=== PATIENT | female | born 1995 | race Caucasian/White ===

== ENCOUNTER 2018-04-03 04:16 | Inpatient (IN) | payer OTHER ==
[2018-04-03] MEDS ORDERED: Ampicillin 2 GM in Sodium Chloride 0.9% 100 ML IV ONE (05:00)
[2018-04-03] MEDS ORDERED: Sodium Chloride 0.9% 10 ML Syringe FLUSH PRN (05:25)
[2018-04-03] MEDS ORDERED: Nalbuphine 20 MG/ML 1 ML Syringe IVPUSH PRN (05:25)
[2018-04-03] MEDS ORDERED: Oxytocin/Lactated Ringers 10 UNIT/1,000 ML BAG IV SCH (05:30)
[2018-04-03] MEDS ORDERED: Lactated Ringers 1,000 ML IV SCH (05:30)
[2018-04-03] MEDS ORDERED: Ampicillin 1 GM in Sodium Chloride 0.9% 100 ML IV SCH (09:00)
--- NOTE | 2018-04-03 09:40 | PCM.LDHP ---
L&D History of Present Illness - General Date of Service: 04/03/18 Admit Problem/Dx: Patient Status Order with Admit Dx/Problem 04/03/18 05:25 Patient Status [ADT] Routine Admission Diagnosis/Problem Admission Diagnosis/Problem Source of Information: Patient, RN Notes Reviewed - History of Present Illness Introduction:: 22 year old at 38w3d here with painful contractions. PNC with Dr Orantes without complications. Labs reviewed - Related Data Allergies/Adverse Reactions: Allergies Allergy/AdvReac Type Severity Reaction Status Date / Time No Known Allergies Allergy Verified 04/03/18 05:24 Past Medical History Other Gastrointestinal History: Hx of frequent diarrhea and constipation both during and prior to . Denies IBS or other known cause for these persistant bowel issues [employer] History: Reports: , Spontaneous Psychiatric History: Reports: None Hematologic History: Reports: Anemia Other Hematologic History: With - Past Surgical History HEENT Surgical History: Reports: Oral Surgery Other HEENT Surgeries/Procedures: Rowdy teeth pulled 2013 GI Surgical History: Reports: Appendectomy Other GI Surgeries/Procedures: 2013 Dermatological Surgical History: Reports: None Social & Family History - Family History Family Medical History: Noncontributory - Tobacco Use Smoking Status *Q: Never Smoker Second Hand Smoke Exposure: No - Caffeine Use Caffeine Use: Reports: None - Recreational Drug Use Recreational Drug Use: No H&P Review of Systems - Review of Systems: Review Of Systems: See Below General: Reports: No Symptoms HEENT: Reports: No Symptoms Pulmonary: Reports: No Symptoms Cardiovascular: Reports: No Symptoms Gastrointestinal: Reports: No Symptoms Genitourinary: Reports: No Symptoms Musculoskeletal: Reports: No Symptoms Skin: Reports: No Symptoms Psychiatric: Reports: No Symptoms Neurological: Reports: No Symptoms Hematologic/Lymphatic: Reports: No Symptoms Immunologic: Reports: No Symptoms L&D Exam - Exam Exam: See Below - Vital Signs Vital Signs: Last Vital Signs Temp 37.4 C 04/03/18 05:25 Pulse 87 04/03/18 05:25 Resp 15 04/03/18 05:25 BP 122/80 04/03/18 05:25 Pulse Ox Weight: 63.957 kg - OB Specific Contraction Intensity: Moderate Movement: Active Heart Tones: Present Heart Rate (FHR) Variability: Moderate (6-25 bmp) Presentation: Vertex - Patterson Score Patterson Score Cervix Position: Anterior Patterson Score Consistency: Soft Patterson Score Dilation: > 5 cm Patterson Score 's Station: -2 - Exam General: Alert, Oriented HEENT: PERRLA, Conjunctiva Clear, EACs Clear, EOMI, Hearing Intact, Mucosa Moist & [place], Nares Patent, Normal Nasal Septum, Posterior Pharynx Clear, TMs Clear Neck: Supple, Trachea Midline Lungs: Clear to Auscultation, Normal Respiratory Effort Cardiovascular: Regular Rate, Regular Rhythm GI/Abdominal Exam: Normal Bowel Sounds, Soft, Non-Tender, No Organomegaly, No Distention, No Abnormal Bruit, No Mass, Pelvis Stable Genitourinary: Normal external exam Back Exam: Normal Inspection, Full Range of Motion Extremities: Normal Inspection, Normal Range of Motion, Non-Tender, No Pedal Edema, Normal Capillary Refill Skin: Warm, Dry, Intact Neurological: Cranial Nerves Intact, Reflexes Equal Bilateral Psychiatric: Alert, Normal Affect, Normal Mood - Patient Data Lab Results Last 24 hrs: Laboratory Results - last 24 hr 04/03/18 Range/Units 06:20 WBC 14.56 H (3.98-10.04) K/mm3 RBC 4.48 (3.98-5.22) M/mm3 Hgb 13.4 (11.2-15.7) gm/L Hct 39.4 (34.1-44.9) % MCV 87.9 (79.4-94.8) fl MCH 29.9 (25.6-32.2) pg MCHC 34.0 (32.2-35.5) g/dl RDW Std Deviation 41.4 (36.4-46.3) fL Plt Count 171 L (182-369) K/mm3 MPV 10.3 (9.4-12.3) fl Neut % (Auto) 79.7 H (34.0-71.1) % Lymph % (Auto) 12.3 L (19.3-51.7) % [place] % (Auto) 7.3 (4.7-12.5) % Eos % (Auto) 0.2 L (0.7-5.8) Baso % (Auto) 0.1 (0.1-1.2) % Neut # (Auto) 11.60 H (1.56-6.13) K/mm3 Lymph # (Auto) 1.79 (1.18-3.74) K/mm3 [place] # (Auto) 1.06 H (0.24-0.36) K/mm3 Eos # (Auto) 0.03 L (0.04-0.36) K/mm3 Baso # (Auto) 0.02 (0.01-0.08) K/mm3 Result Diagrams: 04/03/18 06:20 Problem List Initiated/Reviewed/Updated: Yes Orders Last 24hrs: Active Orders 24 hr Category Date Time Status Patient Status [ADT] Routine ADT 04/03/18 05:25 Active Activity as Tolerated [RC] PFP Care 04/03/18 05:25 Active Communication Order [RC] ASDIRECTED Care 04/03/18 05:25 Active Heart Tones [RC] ASDIRECTED Care 04/03/18 05:28 Active Non Stress Test [RC] PER UNIT ROUTINE Care 04/03/18 05:25 Active Notify Provider [RC] PFP Care 04/03/18 05:25 Active Notify Provider [RC] PRN Care 04/03/18 05:25 Active Peripheral IV Care [RC] . DIRECTED Care 04/03/18 05:28 Active Vital Signs [RC] PER UNIT ROUTINE Care 04/03/18 05:25 Active Regular Diet [DIET] Diet 04/03/18 Breakfast Active RAPID PLASMA REAGIN,RPR [CHEM] Routine Lab 04/03/18 06:20 Received Ampicillin 1 gm Med 04/03/18 09:00 Active Sodium Chloride 0.9% [Normal Saline] 100 ml IV Q4H Lactated Ringers [Ringers, Lactated] 1,000 ml Med 04/03/18 05:30 Active IV ASDIRECTED Nalbuphine [Nubain] Med 04/03/18 05:25 Active 10 mg IVPUSH Q2H PRN Oxytocin/Lactated Ringers [Pitocin in LR 10 Units/1,000 Med 04/03/18 05:30 Active ML] 10 unit in 1,000 ml IV .CONTINUOUS Sodium Chloride 0.9% [Saline Flush] Med 04/03/18 05:25 Active 10 ml FLUSH ASDIRECTED PRN Electronic Heart Tones Ext w TOCO [WOMSER] Oth 04/03/18 05:25 Ordered Routine Electronic Heart Tones Internal [WOMSER] Per Unit Oth 04/03/18 05:25 Ordered Routine Peripheral IV Insertion Adult [OM.PC] Routine Oth 04/03/18 05:25 Ordered Resuscitation Status Routine Resus Stat 04/03/18 05:25 Ordered Medication Orders Ampicillin Sodium 1 gm/ Sodium (Chloride) 100 mls @ 200 mls/hr IV Q4H DIONICIO Lactated Ringer's (Ringers, Lactated) 1,000 mls @ 100 mls/hr IV ASDIRECTED DIONICIO Last Admin: 04/03/18 06:20 Dose: 100 mls/hr Oxytocin/Lactated Ringer's (Pitocin In Lr 10 Units/1,000 Ml) 10 unit in 1,000 mls @ 500 mls/hr IV .CONTINUOUS DIONICIO Nalbuphine HCl (Nubain) 10 mg IVPUSH Q2H PRN PRN Reason: pain Last Admin: 04/03/18 06:35 Dose: 10 mg Sodium Chloride (Saline Flush) 10 ml FLUSH ASDIRECTED PRN PRN Reason: Keep Vein Open Assessment/Plan Comment:: Term labor. Received 1 dose of antibiotics after admission. Now SROM and 9 cm Doing well. Desires nubain for pain management
[2018-04-03] MEDS ORDERED: Lidocaine 1% 50 ML MDV ONE (11:13)
--- NOTE | 2018-04-03 11:30 | PCM.SN ---
- Free Text/Narrative Note: STage I - Patient presented in active labor. SROM clear fluid. Progressed to complete with overall reassuring heart tones. Stage II - of viable male, weight 6#12oz, APGARS 8/9 at 1107. Head delivered in controlled manner over intact perineum. Body and shoulders followed atraumatically. Positive cry. Cord clamped and cut Stage III - of intact placenta. 3vc. Small 1st degree midline laceration repaired with 3-0 vicryl. EBL 250.
[2018-04-03] MEDS ORDERED: Benzocaine/Menthol 20%-0.5% Spray 56 GM Canister TOP PRN (12:12)
[2018-04-03] MEDS ORDERED: Witch Hazel Medicated Pads 100/Jar TOP PRN (12:12)
[2018-04-03] MEDS ORDERED: Lanolin 100% Cream 7 GM Tube TOP PRN (12:12)
[2018-04-03] MEDS ORDERED: Acetaminophen 325 MG Tab PO PRN (14:25)
[2018-04-03] MEDS ORDERED: Lidocaine 1% 50 ML MDV INJECT ONE (19:45)
[2018-04-03] MEDS: Ibuprofen 600 MG Tab PO PRN (20:15)
--- NOTE | 2018-04-04 06:56 | PCM.PNPP ---
- General Info Date of Service: 04/04/18 Functional Status: Reports: Pain Controlled, Tolerating Diet, Ambulating, Urinating - Review of Systems General: Reports: No Symptoms Pulmonary: Reports: No Symptoms Cardiovascular: Reports: No Symptoms Gastrointestinal: Reports: No Symptoms Genitourinary: Reports: No Symptoms Musculoskeletal: Reports: No Symptoms - Patient Data Vital Signs - Most Recent: Last Vital Signs Temp 36.6 C 04/04/18 02:13 Pulse 74 04/04/18 02:13 Resp 16 04/04/18 02:13 BP 104/69 04/04/18 02:13 Pulse Ox 99 04/04/18 02:13 Weight - Most Recent: 63.957 kg I&O - Last 24 Hours: Intake & Output 04/03/18 04/03/18 04/04/18 14:59 22:59 06:59 Intake Total 180 Balance 180 Lab Results - Last 24 Hours: Laboratory Results - last 24 hr 04/03/18 Range/Units 06:20 RPR Non-reactive (NONREACTIVE) Med Orders - Current: Current Medications Acetaminophen (Tylenol) 650 mg PO Q6H PRN PRN Reason: Cramping Benzocaine/Menthol (Dermoplast Pain Relief [place]) 0 gm TOP ASDIRECTED PRN PRN Reason: Perineal Comfort Measure Last Admin: 04/03/18 15:12 Dose: 1 canister Emollient Ointment (Lansinoh Hpa) 0 gm TOP ASDIRECTED PRN PRN Reason: Sore Nipples Ibuprofen (Motrin) 600 mg PO Q6H PRN PRN Reason: Cramping Last Admin: 04/03/18 20:15 Dose: 600 mg Witch Ragini (Tucks) 1 pad TOP ASDIRECTED PRN PRN Reason: Hemorrhoid pain Last Admin: 04/03/18 15:13 Dose: 1 tub Discontinued Medications Ampicillin Sodium 2 gm/ Sodium (Chloride) 100 mls @ 200 mls/hr IV ONETIME ONE Stop: 04/03/18 05:29 Last Admin: 04/03/18 06:20 Dose: 200 mls/hr Ampicillin Sodium 1 gm/ Sodium (Chloride) 100 mls @ 200 mls/hr IV Q4H DIONICIO Last Admin: 04/03/18 10:20 Dose: 200 mls/hr Lactated Ringer's (Ringers, Lactated) 1,000 mls @ 100 mls/hr IV ASDIRECTED DIONICIO Last Admin: 04/03/18 06:20 Dose: 100 mls/hr Oxytocin/Lactated Ringer's (Pitocin In Lr 10 Units/1,000 Ml) 10 unit in 1,000 mls @ 500 mls/hr IV .CONTINUOUS DIONICIO Last Admin: 04/03/18 11:09 Dose: 500 mls/hr Lidocaine HCl (Xylocaine 1%) Confirm Administered Dose 50 ml .ROUTE .STK-MED ONE Stop: 04/03/18 11:14 Last Admin: 04/03/18 11:31 Dose: 50 ml Lidocaine HCl (Xylocaine 1%) 50 ml INJECT ONETIME ONE Stop: 04/03/18 19:46 Nalbuphine HCl (Nubain) 10 mg IVPUSH Q2H PRN PRN Reason: pain Last Admin: 04/03/18 06:35 Dose: 10 mg Sodium Chloride (Saline Flush) 10 ml FLUSH ASDIRECTED PRN PRN Reason: Keep Vein Open - Interaction Disposition, : [place] in Room with Family Infant Interaction: Holding Feeding: Attempted ; Nursed Fair/Poor Support Person: - Recovery Exam Fundal Tone: Firm Fundal Level: At Umbilicus Fundal Placement: Midline Lochia Amount: Scant, Small Lochia Color: Rubra/Red Bladder Status: Voiding Urinary Elimination: Voided - Exam General: Alert, Oriented, Cooperative GI/Abdominal Exam: Soft, Non-Tender Extremities: Normal Inspection Skin: Warm, Dry, Intact - Problem List & Annotations (1) 38 weeks gestation of SNOMED Code(s): 01799095 Code(s): Z3A.38 - 38 WEEKS GESTATION OF Status: Acute Current Visit: Yes (2) Normal labor SNOMED Code(s): 23098907 Code(s): O80 - ENCOUNTER FOR FULL-TERM UNCOMPLICATED DELIVERY; Z37.9 - OUTCOME OF DELIVERY, UNSPECIFIED Status: Acute Current Visit: Yes (3) Vaginal delivery SNOMED Code(s): 807539835 Code(s): O80 - ENCOUNTER FOR FULL-TERM UNCOMPLICATED DELIVERY Status: Acute Current Visit: Yes - Problem List Review Problem List Initiated/Reviewed/Updated: Yes - Assessment Assessment:: PPD#1 from - Plan Plan:: Routine cares Encourage breast feeding Discharge home tomorrow
[2018-04-04] MEDS: Ibuprofen 600 MG Tab PO PRN ×2 (07:59→18:46)
[2018-04-05] MEDS: Ibuprofen 600 MG Tab PO PRN ×2 (01:20→06:59)
--- NOTE | 2018-04-05 08:34 | PCM.DCSUM1 ---
Discharge Summary - Discharge Data Discharge Date: 04/05/18 Discharge Disposition: Home, Self-Care 01 Condition: Good - Discharge Diagnosis/Problem(s) (1) 38 weeks gestation of SNOMED Code(s): 11451607 ICD Code: Z3A.38 - 38 WEEKS GESTATION OF Status: Acute (2) Normal labor SNOMED Code(s): 68358331 ICD Code: O80 - ENCOUNTER FOR FULL-TERM UNCOMPLICATED DELIVERY; Z37.9 - OUTCOME OF DELIVERY, UNSPECIFIED Status: Acute (3) Vaginal delivery SNOMED Code(s): 079711522 ICD Code: O80 - ENCOUNTER FOR FULL-TERM UNCOMPLICATED DELIVERY Status: Acute - Patient Summary/Data Complications: None Consults: None Recommended Follow-up Testing/Procedures: Follow up in 3-6 weeks for check Hospital Course: 22 y/o at 38 5/7 wks presented in labor. Progressed well and underwent an uncomplicated . See delivery note. she did well and was discharged home on PPD#2 - Patient Instructions Diet: Regular Diet as Tolerated Activity: As Tolerated Activity, Other: Pelvic Rest for 6 weeks Driving: May Drive Today Showering/Bathing: May Shower Showering/Bathing, Other: May Bathe Notify Provider of: Fever, Increased Pain, Swelling and Redness, Drainage, Nausea and/or Vomiting - Discharge Plan *PRESCRIPTION DRUG MONITORING PROGRAM REVIEWED*: Not Applicable *COPY OF PRESCRIPTION DRUG MONITORING REPORT IN PATIENT BENEDICTO: Not Applicable Home Medications: Home Meds Ibuprofen [Motrin] 600 mg PO Q6H PRN tablet 04/05/18 [Rx] Patient Handouts: Home Care Instructions for Mom, Tips for a Good Latch Referrals: Sherly Orantes MD [Primary Care Provider] - (3-6 weeks for check) - Discharge Summary/Plan Comment DC Time >30 min.: No - Patient Data Vitals - Most Recent: Last Vital Signs Temp 36.6 C 04/05/18 07:49 Pulse 61 04/05/18 07:49 Resp 15 04/05/18 07:49 BP 118/65 04/05/18 07:49 Pulse Ox 100 04/05/18 07:49 Weight - Most Recent: 63.957 kg I&O - Last 24 hours: Intake & Output 04/04/18 04/05/18 04/05/18 22:59 06:59 14:59 Intake Total 120 Balance 120 Med Orders - Current: Current Medications Acetaminophen (Tylenol) 650 mg PO Q6H PRN PRN Reason: Cramping Benzocaine/Menthol (Dermoplast Pain Relief [place]) 0 gm TOP ASDIRECTED PRN PRN Reason: Perineal Comfort Measure Last Admin: 04/03/18 15:12 Dose: 1 canister Emollient Ointment (Lansinoh Hpa) 0 gm TOP ASDIRECTED PRN PRN Reason: Sore Nipples Ibuprofen (Motrin) 600 mg PO Q6H PRN PRN Reason: Cramping Last Admin: 04/05/18 06:59 Dose: 600 mg Witch Ragini (Tucks) 1 pad TOP ASDIRECTED PRN PRN Reason: Hemorrhoid pain Last Admin: 04/03/18 15:13 Dose: 1 tub Discontinued Medications Ampicillin Sodium 2 gm/ Sodium (Chloride) 100 mls @ 200 mls/hr IV ONETIME ONE Stop: 04/03/18 05:29 Last Admin: 04/03/18 06:20 Dose: 200 mls/hr Ampicillin Sodium 1 gm/ Sodium (Chloride) 100 mls @ 200 mls/hr IV Q4H DIONICIO Last Admin: 04/03/18 10:20 Dose: 200 mls/hr Lactated Ringer's (Ringers, Lactated) 1,000 mls @ 100 mls/hr IV ASDIRECTED DIONICIO Last Admin: 04/03/18 06:20 Dose: 100 mls/hr Oxytocin/Lactated Ringer's (Pitocin In Lr 10 Units/1,000 Ml) 10 unit in 1,000 mls @ 500 mls/hr IV .CONTINUOUS DIONICIO Last Admin: 04/03/18 11:09 Dose: 500 mls/hr Lidocaine HCl (Xylocaine 1%) Confirm Administered Dose 50 ml .ROUTE .STK-MED ONE Stop: 04/03/18 11:14 Last Admin: 04/03/18 11:31 Dose: 50 ml Lidocaine HCl (Xylocaine 1%) 50 ml INJECT ONETIME ONE Stop: 04/03/18 19:46 Last Admin: 04/04/18 11:36 Dose: Not Given Nalbuphine HCl (Nubain) 10 mg IVPUSH Q2H PRN PRN Reason: pain Last Admin: 04/03/18 06:35 Dose: 10 mg Sodium Chloride (Saline Flush) 10 ml FLUSH ASDIRECTED PRN PRN Reason: Keep Vein Open
--- NOTE | 2018-04-05 08:34 | PCM.PNPP ---
- General Info Date of Service: 04/05/18 Functional Status: Reports: Pain Controlled, Tolerating Diet, Ambulating, Urinating - Review of Systems General: Reports: No Symptoms Pulmonary: Reports: No Symptoms Cardiovascular: Reports: No Symptoms Gastrointestinal: Reports: No Symptoms Genitourinary: Reports: No Symptoms Musculoskeletal: Reports: No Symptoms Skin: Reports: No Symptoms - Patient Data Vital Signs - Most Recent: Last Vital Signs Temp 36.6 C 04/05/18 07:49 Pulse 61 04/05/18 07:49 Resp 15 04/05/18 07:49 BP 118/65 04/05/18 07:49 Pulse Ox 100 04/05/18 07:49 Weight - Most Recent: 63.957 kg I&O - Last 24 Hours: Intake & Output 04/04/18 04/05/18 04/05/18 22:59 06:59 14:59 Intake Total 120 Balance 120 Med Orders - Current: Current Medications Acetaminophen (Tylenol) 650 mg PO Q6H PRN PRN Reason: Cramping Benzocaine/Menthol (Dermoplast Pain Relief [place]) 0 gm TOP ASDIRECTED PRN PRN Reason: Perineal Comfort Measure Last Admin: 04/03/18 15:12 Dose: 1 canister Emollient Ointment (Lansinoh Hpa) 0 gm TOP ASDIRECTED PRN PRN Reason: Sore Nipples Ibuprofen (Motrin) 600 mg PO Q6H PRN PRN Reason: Cramping Last Admin: 04/05/18 06:59 Dose: 600 mg Witch Ragini (Tucks) 1 pad TOP ASDIRECTED PRN PRN Reason: Hemorrhoid pain Last Admin: 04/03/18 15:13 Dose: 1 tub Discontinued Medications Ampicillin Sodium 2 gm/ Sodium (Chloride) 100 mls @ 200 mls/hr IV ONETIME ONE Stop: 04/03/18 05:29 Last Admin: 04/03/18 06:20 Dose: 200 mls/hr Ampicillin Sodium 1 gm/ Sodium (Chloride) 100 mls @ 200 mls/hr IV Q4H [facility] Last Admin: 04/03/18 10:20 Dose: 200 mls/hr Lactated Ringer's (Ringers, Lactated) 1,000 mls @ 100 mls/hr IV ASDIRECTED [facility] Last Admin: 04/03/18 06:20 Dose: 100 mls/hr Oxytocin/Lactated Ringer's (Pitocin In Lr 10 Units/1,000 Ml) 10 unit in 1,000 mls @ 500 mls/hr IV .CONTINUOUS DIONICIO Last Admin: 04/03/18 11:09 Dose: 500 mls/hr Lidocaine HCl (Xylocaine 1%) Confirm Administered Dose 50 ml .ROUTE .STK-MED ONE Stop: 04/03/18 11:14 Last Admin: 04/03/18 11:31 Dose: 50 ml Lidocaine HCl (Xylocaine 1%) 50 ml INJECT ONETIME ONE Stop: 04/03/18 19:46 Last Admin: 04/04/18 11:36 Dose: Not Given Nalbuphine HCl (Nubain) 10 mg IVPUSH Q2H PRN PRN Reason: pain Last Admin: 04/03/18 06:35 Dose: 10 mg Sodium Chloride (Saline Flush) 10 ml FLUSH ASDIRECTED PRN PRN Reason: Keep Vein Open - Infant Interaction Disposition, : in Room with Family Interaction: Holding Feeding: Attempted ; Nursed Fair/Poor Support Person: - Recovery Exam Fundal Tone: Firm Fundal Level: 2 Fingerbreadths Below Umbilicus Fundal Placement: Midline Lochia Amount: Scant, Small Lochia Color: Rubra/Red Perineum Description: Other (see below) Other Perinuem Description: 1st deg with repair alan care per self Episiotomy/Laceration: Approximated Bladder Status: Voiding Urinary Elimination: Voided - Exam General: Alert, Oriented, Cooperative GI/Abdominal Exam: Soft, Non-Tender Extremities: Normal Inspection - Problem List & Annotations (1) 38 weeks gestation of SNOMED Code(s): 13611397 Code(s): Z3A.38 - 38 WEEKS GESTATION OF Status: Acute (2) Normal labor SNOMED Code(s): 99270763 Code(s): O80 - ENCOUNTER FOR FULL-TERM UNCOMPLICATED DELIVERY; Z37.9 - OUTCOME OF DELIVERY, UNSPECIFIED Status: Acute (3) Vaginal delivery SNOMED Code(s): 082123011 Code(s): O80 - ENCOUNTER FOR FULL-TERM UNCOMPLICATED DELIVERY Status: Acute - Problem List Review Problem List Initiated/Reviewed/Updated: Yes - My Orders Last 24 Hours: My Active Orders 10/03/18 08:34 Ready for Discharge [RC] PER UNIT ROUTINE - Assessment Assessment:: PPD#2 from - Plan Plan:: Routine cares Encourage breast feeding Discharge home today
== END 2018-04-05 11:25 | disposition home or self-care (01) | DRG 807 ==
LOC: JD.OBCHECK 04:16 → JD.OB 04:17 → JD.OBCHECK 05:30 → JD.OB 05:32 → OBSVTOIN 11:07 → JD.OB 11:08
PROVIDERS: ADMIT Obstetrics & Gynecology; ATTEND Obstetrics & Gynecology
PROC: 10E0XZZ Delivery of Products of Conception, External Approach (ICD-10-PCS; principal; 2018-04-03)
PROC: 0HQ9XZZ Repair Perineum Skin, External Approach (ICD-10-PCS; principal; 2018-04-03)
DX: O99.824 Streptococcus B carrier state complicating childbirth (principal); Z37.0 Single live birth; O99.62 Diseases of the digestive system complicating childbirth; Z3A.38 38 weeks gestation of pregnancy; R19.7 Diarrhea, unspecified; K59.00 Constipation, unspecified; O70.0 First degree perineal laceration during delivery
CPT/HCPCS: 36415; 59025; 59300; 59409; 85025; 86592; A9270-GY; J0290; J2300; J2590; J7030; J7120